=== PATIENT | male | born 1995 | race Caucasian/White ===

== ENCOUNTER 2018-10-01 21:49 | Emergency (ER) | payer OTHER ==
[~2018-10-01] VITALS: Ht 167.6 cm; Wt 82.5 kg
[2018-10-01] MEDS ORDERED: PROMETHAZINE 25 MG/ML, 1ML ONE (22:53)
[2018-10-01] MEDS ORDERED: KETOROLAC 30 MG/1 ML ONE (22:53)
[2018-10-01 22:56] VITALS: BP 104/55
[2018-10-01] MEDS ORDERED: KETOROLAC 30 MG/1 ML IM ONE (23:00)
[2018-10-01] MEDS ORDERED: PROMETHAZINE 25 MG/ML, 1ML IM ONE (23:00)
== END 2018-10-01 23:03 | disposition home or self-care (01) ==
LOC: ED 23:02
DX: S06.0X0A Concussion without loss of consciousness, initial encounter (principal); R41.0 Disorientation, unspecified; W22.8XXA Striking against or struck by other objects, initial encounter; Y93.89 Activity, other specified; Y92.39 Other specified sports and athletic area as the place of occurrence of the external cause; Y99.8 Other external cause status
CPT/HCPCS: 70450; 96372; 99284; J1885; J2550